=== PATIENT | female | born 2000 | race African-American/Black ===

== ENCOUNTER 2020-08-09 17:03 | Emergency (ER) | payer BC, OTHER ==
[~2020-08-09] VITALS: Ht 160 cm; Wt 54.4 kg
--- NOTE | 2020-08-09 17:22 | ED GU-Female ---
General Chief Complaint: Female Reproductive Stated Complaint: APPROX 4 WKS PREG/BLEEDING Source: patient, other (Significant other) Exam Limitations: no limitations (KRISTOFER NEVES) History of Present Illness Date Seen by Provider: Aug 09, 2020 Time Seen by Provider: 17:09 Initial Comments Patient presents ER by private conveyance from home with her significant other and chief complaint that she got done with track practice and noticed some spotting. She had intercourse this morning unprotected. She had a positive test 1 day ago. Her last menstrual period was June 24. Her last intercourse prior to that was July 14 and she took Plan B July 15. She is a G0 at 6 weeks and 4 days. She does not take any control. She does not desire to be . She denies dysuria, discharge or dyspareunia. No bleeding or spotting after intercourse. No problems with bowels nausea vomiting fevers chills or discharge. (KRISTOFER NEVES) Allergies and Home Medications Allergies Coded Allergies: No Known Drug Allergies (Unverified , 08/09/20) Patient Home Medication List Home Medication List Reviewed: Yes (KRISTOFER NEVES) Review of Systems Review of Systems Constitutional: No chills, No diaphoresis EENTM: No ear discharge, No ear pain Respiratory: No cough, No dyspnea on exertion Cardiovascular: No chest pain, No palpitations Gastrointestinal: No abdominal pain, No nausea, No vomiting Genitourinary: denies discharge, denies dysuria : Yes LMP: Jun 24, 2020 Musculoskeletal: No back pain, No joint pain (KRISTOFER NEVES) All Other Systemes Reviewed Negative Unless Noted: Yes (KRISTOFER NEVES) Past Vsxexje-Vimmwy-Wqxibw Hx Patient Social History Alcohol Use: Denies Use Smoking Status: Never a Smoker (KRISTOFER NEVES) Physical Exam Vital Signs Vital Signs - First Documented 08/09/20 08/09/20 17:16 20:55 Temp 36.7 Pulse 116 Resp 18 B/P (MAP) 128/69 (88) Pulse Ox 99 O2 Delivery Room Air (CHELO MILLS MD) Vital Signs Capillary Refill : (KRISTOFER NEVES) Height, Weight, BMI Height: '" Weight: lbs. oz. kg; BMI Method: General Appearance: WD/WN, no apparent distress HEENT: PERRL/EOMI, pharynx normal Neck: full range of motion, normal inspection Cardiovascular: normal peripheral pulses, regular rate, rhythm Respiratory: lungs clear, normal breath sounds, no respiratory distress, no accessory muscle use Gastrointestinal: normal bowel sounds, non tender, soft Neurologic/Psychiatric: alert, normal mood/affect, oriented x 3 (KRISTOFER NEVES) Progress/Results/Core Measures Suspected Sepsis SIRS Temperature: Pulse: Respiratory Rate: Laboratory Tests 08/09/20 17:20: White Blood Count 12.6H Blood Pressure / Mean: Laboratory Tests 08/09/20 17:20: Creatinine 0.97, Platelet Count 245 (KRISTOFER NEVES) Results/Orders Lab Results Laboratory Tests Test 08/09/20 17:20 08/09/20 19:50 Range/Units White Blood Count 12.6 H 4.3-11.0 10^3/uL Red Blood Count 4.58 3.80-5.11 10^6/uL Hemoglobin 13.9 11.5-16.0 g/dL Hematocrit 42 35-52 % Mean Corpuscular Volume 91 80-99 fL Mean Corpuscular Hemoglobin 30 25-34 pg Mean Corpuscular Hemoglobin Concent 34 32-36 g/dL Red Cell Distribution Width 12.5 10.0-14.5 % Platelet Count 245 130-400 10^3/uL Mean Platelet Volume 11.5 9.0-12.2 fL Immature Granulocyte % (Auto) 0 % Neutrophils (%) (Auto) 84 H 42-75 % Lymphocytes (%) (Auto) 9 L 12-44 % Monocytes (%) (Auto) 6 0-12 % Eosinophils (%) (Auto) 0 0-10 % Basophils (%) (Auto) 0 0-10 % Neutrophils # (Auto) 10.6 H 1.8-7.8 10^3/uL Lymphocytes # (Auto) 1.1 1.0-4.0 10^3/uL Monocytes # (Auto) 0.8 0.0-1.0 10^3/uL Eosinophils # (Auto) 0.1 0.0-0.3 10^3/uL Basophils # (Auto) 0.0 0.0-0.1 10^3/uL Immature Granulocyte # (Auto) 0.1 0.0-0.1 10^3/uL Urine Color YELLOW Urine Clarity CLEAR Urine pH 5.0 5-9 Urine Specific [place] >=1.030 1.016-1.022 Urine Protein TRACE H NEGATIVE Urine Glucose (UA) NEGATIVE NEGATIVE Urine Ketones TRACE H NEGATIVE Urine Nitrite NEGATIVE NEGATIVE Urine Bilirubin NEGATIVE NEGATIVE Urine Urobilinogen 0.2 < = 1.0 MG/DL Urine Leukocyte Esterase NEGATIVE NEGATIVE Urine RBC (Auto) 2+ H NEGATIVE Urine RBC 5-10 H /HPF Urine WBC 0-2 /HPF Urine Crystals PRESENT H /LPF Urine Amorphous Sediment RARE JANAE URATES H /LPF Urine Bacteria TRACE /HPF Urine Casts NONE /LPF Urine Mucus SMALL H /LPF Urine Culture Indicated NO Sodium Level 137 135-145 MMOL/L Potassium Level 4.7 3.6-5.0 MMOL/L Chloride Level 106 98-107 MMOL/L Carbon Dioxide Level 18 L 21-32 MMOL/L Anion Gap 13 5-14 MMOL/L Blood Urea Nitrogen 12 7-18 MG/DL Creatinine 0.97 0.60-1.30 MG/DL Estimat Glomerular Filtration Rate > 60 BUN/Creatinine Ratio 12 Glucose Level 81 70-105 MG/DL Calcium Level 8.9 8.5-10.1 MG/DL Human Chorionic Gonadotropin, Quant 52729 H <5 MIU/ML Serum Test, Qualitative POSITIVE NEGATIVE (CHELO MILLS MD) My Orders Orders - CHELO MILLS MD Ob<14 Wks Sngle W/Transvag (08/09/20 18:22) Abo Rh Type (08/09/20 19:53) Wet Prep (08/09/20 19:57) Neisseria Gonorrhea Swab (08/09/20 19:57) Genital Culture (08/09/20 19:57) Chlamydia Trachomatis Swab (08/09/20 19:57) Ceftriaxone For Im Use (Rocephin For Im (08/09/20 20:30) Lidocaine 1% Inj 20 Ml (Xylocaine 1% Inj (08/09/20 20:30) Azithromycin Tablet (Zithromax Tablet) (08/09/20 20:30) (CHELO MILLS MD) Medications Given in ED Current Medications Medications Dose Ordered Sig/Michelle Route Start Time Stop Time Status Last Admin Dose Admin Azithromycin 1,000 mg ONCE ONCE PO 3/19/21 20:30 08/09/20 20:31 DC 08/09/20 20:48 1,000 MG Ceftriaxone Sodium 250 mg ONCE ONCE IM 08/09/20 20:30 08/09/20 20:31 DC 08/09/20 20:48 250 MG Lidocaine HCl 0.9 ml ONCE ONCE INJ 08/09/20 20:30 08/09/20 20:31 DC 08/09/20 20:48 0.9 ML (CHELO MILLS MD) Vital Signs/I&O 08/09/20 20:55 Temp 36.7 Pulse 89 Resp 18 B/P (MAP) 125/66 (88) Pulse Ox 99 O2 Delivery Room Air (CHELO MILLS MD) Vital Signs/I&O Capillary Refill : (KRISTOFER NEVES) Progress Note #1: Time: 17:23 Progress Note Plan to get a urinalysis and bedside . If this is positive we will do a pelvic exam and get a beta hCG. If the beta hCG is greater than 2500 we will get a transvaginal ultrasound as she has not had any care or ultrasound to date. Would like to rule out ectopic . She denies any significant discomfort at this time. Progress Note #2: Time: 18:05 Progress Note hCG pending. She may need a ultrasound to confirm placement of her . Discussed the case with Dr. Edmond and he accepts the care of the patient at shift change. (KRISTOFER NEVES) Progress Note : Progress Note I assumed care of this patient at shift change. hCG returned with significant elevation. Ultrasound was obtained and showed an intrauterine gestational sac but no heartbeat evident. I discussed options with the patient including further evaluation with pelvic exam. She elected to proceed with pelvic exam which was performed by Jacqui Sheehan NP. There was bloody mucousy discharge from the cervical os without any other pathology identified. There was no cervical inflammation or cervical motion tenderness. The microscopic evaluation demonstrated a significant number of white cells. For this reason patient was treated with Rocephin and azithromycin. Options regarding plans for her moving forward were discussed and patient was given multiple resources to reference. She was discharged home in stable condition. The importance of follow-up to determine the nature of her was stressed. (CHELO MILLS MD) Departure Impression Primary Impression: Threatened miscarriage Disposition: HOME, SELF-CARE Condition: Improved Departure-Patient Inst. Decision time for Depature: 20:42 (CHELO MILLS MD) Referrals: NACHO DOLAN,RADHA ABARCA,DONNA BARRETT,RAJENDRA STAHL,TETE SOLIS,DALE He MD NO,LOCAL PHYSICIAN (PCP) Primary Care Physician JUN TAM DO Patient Instructions: Threatened Miscarriage (DC) Add. Discharge Instructions: You may take Tylenol (acetaminophen) up to 650 mg every 6 hours as needed. Drink plenty of clear liquids to stay well-hydrated. Follow-up with a women's health provider as soon as possible. Several physicians are listed below for your convenience. Observe pelvic rest (nothing in the vagina or intercourse) until you are cleared by a physician and your cultures have been reviewed. Call with any questions or concerns. Return to the emergency room if you have significant worsening of conditions or additional symptoms such as fever, nausea excessive bleeding, shortness of breath, lightheadedness, vomiting, etc. All discharge instructions reviewed with patient and/or family. Voiced understanding. KRISTOFER NEVES Aug 09, 2020 17:22 CHELO MILLS MD Aug 09, 2020 20:45
[2020-08-09 17:31] LABS: BASOPHILS % (AUTO) 0 % (0-10); BILIRUBIN,URINE NEGATIVE (NEGATIVE); CLARITY,URINE CLEAR; COLOR,URINE YELLOW; EOSINOPHILS # (AUTO) 0.1 10^3/uL (0.0-0.3); EOSINOPHILS % (AUTO) 0 % (0-10); GLUCOSE, URINE (UA) NEGATIVE (NEGATIVE); HEMATOCRIT 42 % (35-52); HEMOGLOBIN 13.9 g/dL (11.5-16.0); KETONES,URINE TRACE (NEGATIVE); LEUKOCYTE ESTERASE ,URINE NEGATIVE (NEGATIVE); LYMPHOCYTES # (AUTO) 1.1 10^3/uL (1.0-4.0); LYMPHOCYTES % (AUTO) 9 % (12-44); MEAN CORPUSCULAR HEMOGLOBIN 30 pg (25-34); MEAN CORPUSCULAR HGB CONC 34 g/dL (32-36); MEAN CORPUSCULAR VOLUME 91 fL (80-99); MEAN PLATELET VOLUME 11.5 fL (9.0-12.2); MONOCYTES # (AUTO) 0.8 10^3/uL (0.0-1.0); MONOCYTES % (AUTO) 6 % (0-12); NEUTROPHILS # (AUTO) 10.6 10^3/uL (1.8-7.8); NEUTROPHILS % (AUTO) 84 % (42-75); NITRITE,URINE NEGATIVE (NEGATIVE); PLATELET COUNT 245 10^3/uL (130-400); PROTEIN,URINE TRACE (NEGATIVE); WHITE BLOOD COUNT 12.6 10^3/uL (4.3-11.0)
[2020-08-09 17:47] LABS: AMORPHOUS SEDIMENT,UR RARE AMOR URATES /LPF; BACTERIA,URINE TRACE /HPF; WBC,URINE 0-2 /HPF
[2020-08-09 17:51] LABS: BUN/CREATININE RATIO 12; CALCIUM 8.9 MG/DL (8.5-10.1); CARBON DIOXIDE 18 MMOL/L (21-32); CHLORIDE 106 MMOL/L (98-107); CREATININE SERUM 0.97 MG/DL (0.60-1.30); GFR ESTIMATED > 60; GLUCOSE 81 MG/DL (70-105); POTASSIUM 4.7 MMOL/L (3.6-5.0); SODIUM 137 MMOL/L (135-145)
--- NOTE | 2020-08-09 19:27 | Diagnostic Imaging Report ---
INDICATION: Confirm viability. EXAMINATION: OB ultrasound. COMPARISON: There is no prior study available for comparison. FINDINGS: There is a gestational sac within the uterus but there is no clear evidence for an embryonic pole. The sac measurements would correspond to a 6 week 1 day +/- 1 week. This could represent an early live . The possibility that this is secondary to a blighted ovum should also be considered. Correlation with the patient's beta hCG levels would be recommended. There is no pelvic mass or free fluid collection to suggest an ectopic . Both ureters were identified and were unremarkable. IMPRESSION: 1. There is a gestational sac within the uterus but there is no clear evidence for embryonic pole. Whether this is related to an early live or a blighted ovum is not certain. Recommendations as above. 2. There is no acute pelvic abnormality noted otherwise. Dictated by: Dictated on workstation # [id number]
[2020-08-09] MEDS ORDERED: AZITHROMYCIN 250 MG TAB (ZITHROMAX) PO ONE (20:30)
[2020-08-09] MEDS ORDERED: LIDOCAINE 1% INJ 20 ML 20 ML VIAL INJ ONE (20:30)
[2020-08-09] MEDS ORDERED: cefTRIAXone 250 MG/ML vial (IM ONLY) IM ONE (20:30)
[2020-08-09 20:55] VITALS: BP 125/66
== END 2020-08-09 21:01 | disposition home or self-care (01) ==
LOC: ER 17:06
DX: O20.0 Threatened abortion (principal); Z3A.01 Less than 8 weeks gestation of pregnancy
CPT/HCPCS: 36415; 76801; 76817; 80048; 81000; 84702; 84703; 85025; 86900; 86901; 87070; 87077; 87205; 87210; 87491; 87591

== ENCOUNTER 2020-09-14 20:13 | Emergency (ER) | payer BC ==
[~2020-09-14] VITALS: Ht 160 cm; Wt 55.8 kg
[2020-09-14 20:39] LABS: BASOPHILS % (AUTO) 0 % (0-10); EOSINOPHILS % (AUTO) 0 % (0-10); HEMATOCRIT 41 % (35-52); HEMOGLOBIN 13.4 g/dL (11.5-16.0); LYMPHOCYTES # (AUTO) 1.1 10^3/uL (1.0-4.0); LYMPHOCYTES % (AUTO) 9 % (12-44); MEAN CORPUSCULAR HEMOGLOBIN 30 pg (25-34); MEAN CORPUSCULAR HGB CONC 33 g/dL (32-36); MEAN CORPUSCULAR VOLUME 90 fL (80-99); MEAN PLATELET VOLUME 10.5 fL (9.0-12.2); MONOCYTES # (AUTO) 0.7 10^3/uL (0.0-1.0); MONOCYTES % (AUTO) 6 % (0-12); NEUTROPHILS # (AUTO) 10.4 10^3/uL (1.8-7.8); NEUTROPHILS % (AUTO) 85 % (42-75); PLATELET COUNT 244 10^3/uL (130-400); WHITE BLOOD COUNT 12.3 10^3/uL (4.3-11.0)
[2020-09-14] MEDS ORDERED: KETOROLAC 30 MG/ML VIAL IVP ONE (20:45)
--- NOTE | 2020-09-14 20:50 | ED Abdominal Pain ---
General Chief Complaint: Abdominal/GI Problems Stated Complaint: LOWER ABD PAIN Nursing Triage Note: PRESENTS TO ROOM #5 VIA POV WITH C/O R LOWER QUADRANT DISCOMFORT. STATES AFTER RUNNING AT HER TRACK MEET THIS EVENING, SHE BEGAN TO EXPERIENCE PAIN. STATES, "IT FEELS LIKE ITS BULGING OUT" WHILE POINT AT HER R LOWER QUADRANT. STATES ON 08/07/20 SHE ABORTED HER ET HAS HAD NO F/U CARE SINCE. Sepsis Screen: No Definite Risk Source of Information: Patient Exam Limitations: No Limitations History of Present Illness Date Seen by Provider: Sep 14, 2020 Time Seen by Provider: 20:28 Initial Comments This is a healthy-appearing 20-year-old female who presents to the ER with complaints of sudden onset right lower quad abdominal pain. States she was at a track meet when she finished running she began to experience sudden onset of pain. Describes pain as sharp in nature. Currently rating 1 out of 10, but is 7 out of 10 at its worse. States pain is worse when she gets up and moves around. Reports having pill last month and is due anytime for her menstrual cycle. She is sexually active and uses condoms for protection. Took test yesterday and was negative. Denies fever, chills, cough, shortness of breath, nausea/vomiting/diarrhea, dysuria or hematuria. Allergies and Home Medications Allergies Coded Allergies: No Known Drug Allergies (Unverified , 08/09/20) Patient Home Medication List Home Medication List Reviewed: Yes Review of Systems Review of Systems Constitutional: no symptoms reported EENTM: No Symptoms Reported Respiratory: No Symptoms Reported Cardiovascular: No Symptoms Reported Gastrointestinal: See HPI Genitourinary: No Symptoms Reported Musculoskeletal: no symptoms reported Skin: no symptoms reported Psychiatric/Neurological: No Symptoms Reported Endocrine: No Symptoms Reported Hematologic/Lymphatic: No Symptoms Reported Past Zhwrgrj-Qlohvg-Fbhzgr Hx Patient Social History Recent Infectious Disease Expo: No Recent Hopitalizations: No Seasonal Allergies Seasonal Allergies: No Past Medical History Surgeries: No Respiratory: No Cardiac: No Neurological: No Genitourinary: No Gastrointestinal: No Musculoskeletal: No Endocrine: No Cancer: No Psychosocial: No Integumentary: No Blood Disorders: No Physical Exam Vital Signs Vital Signs - First Documented 09/14/20 20:29 Temp 36.7 Pulse 98 Resp 18 B/P (MAP) 136/85 (102) Pulse Ox 99 O2 Delivery Room Air Capillary Refill : Less Than 3 Seconds Height/Weight/BMI Height: '" Weight: lbs. oz. kg; 21.00 BMI Method: General Appearance: WD/WN, no apparent distress HEENT: PERRL/EOMI, normal ENT inspection, pharynx normal Neck: full range of motion, normal inspection Respiratory: lungs clear, normal breath sounds, no accessory muscle use Cardiovascular: normal peripheral pulses, regular rate, rhythm, no murmur Gastrointestinal: normal bowel sounds, soft; No rebound; tenderness (RLQ) Extremities: normal range of motion, non-tender, normal capillary refill Back: normal inspection, no vertebral tenderness Neurologic/Psychiatric: no motor/sensory deficits, alert, normal mood/affect, oriented x 3 Skin: normal color, warm/dry Progress/Results/Core Measures Results/Orders Lab Results Laboratory Tests Test 09/14/20 20:30 09/14/20 20:45 Range/Units White Blood Count 12.3 H 4.3-11.0 10^3/uL Red Blood Count 4.55 3.80-5.11 10^6/uL Hemoglobin 13.4 11.5-16.0 g/dL Hematocrit 41 35-52 % Mean Corpuscular Volume 90 80-99 fL Mean Corpuscular Hemoglobin 30 25-34 pg Mean Corpuscular Hemoglobin Concent 33 32-36 g/dL Red Cell Distribution Width 12.8 10.0-14.5 % Platelet Count 244 130-400 10^3/uL Mean Platelet Volume 10.5 9.0-12.2 fL Immature Granulocyte % (Auto) 0 % Neutrophils (%) (Auto) 85 H 42-75 % Lymphocytes (%) (Auto) 9 L 12-44 % Monocytes (%) (Auto) 6 0-12 % Eosinophils (%) (Auto) 0 0-10 % Basophils (%) (Auto) 0 0-10 % Neutrophils # (Auto) 10.4 H 1.8-7.8 10^3/uL Lymphocytes # (Auto) 1.1 1.0-4.0 10^3/uL Monocytes # (Auto) 0.7 0.0-1.0 10^3/uL Eosinophils # (Auto) 0.0 0.0-0.3 10^3/uL Basophils # (Auto) 0.0 0.0-0.1 10^3/uL Immature Granulocyte # (Auto) 0.1 0.0-0.1 10^3/uL Sodium Level 138 135-145 MMOL/L Potassium Level 4.5 3.6-5.0 MMOL/L Chloride Level 103 98-107 MMOL/L Carbon Dioxide Level 25 21-32 MMOL/L Anion Gap 10 5-14 MMOL/L Blood Urea Nitrogen 11 7-18 MG/DL Creatinine 1.01 0.60-1.30 MG/DL Estimat Glomerular Filtration Rate > 60 BUN/Creatinine Ratio 11 Glucose Level 94 70-105 MG/DL Calcium Level 9.3 8.5-10.1 MG/DL Corrected Calcium 9.0 8.5-10.1 MG/DL Total Bilirubin 0.5 0.1-1.0 MG/DL Aspartate Amino Transf (AST/SGOT) 31 5-34 U/L Alanine Aminotransferase (ALT/SGPT) 35 0-55 U/L Alkaline Phosphatase 71 40-136 U/L Total Protein 7.7 6.4-8.2 GM/DL Albumin 4.4 3.2-4.5 GM/DL Urine Color YELLOW Urine Clarity CLEAR Urine pH 6.0 5-9 Urine Specific [place] >=1.030 1.016-1.022 Urine Protein NEGATIVE NEGATIVE Urine Glucose (UA) NEGATIVE NEGATIVE Urine Ketones NEGATIVE NEGATIVE Urine Nitrite NEGATIVE NEGATIVE Urine Bilirubin NEGATIVE NEGATIVE Urine Urobilinogen 0.2 < = 1.0 MG/DL Urine Leukocyte Esterase NEGATIVE NEGATIVE Urine RBC (Auto) NEGATIVE NEGATIVE Urine RBC NONE /HPF Urine WBC NONE /HPF Urine Squamous Epithelial Cells 2-5 /HPF Urine Crystals NONE /LPF Urine Bacteria NEGATIVE /HPF Urine Casts NONE /LPF Urine Mucus NEGATIVE /LPF Urine Culture Indicated NO My Orders Orders - MASHA OLIVEIRA PULVI MIXER OPERATOR Ua Culture If Indicated (09/14/20 20:27) Urine Bedside (09/14/20 20:27) Cbc With Automated Diff (09/14/20 20:34) Comprehensive Metabolic Panel (09/14/20 20:34) Ct Abd/Pelv W (Appendicitis) (09/14/20 20:34) Ed Iv/Invasive Line Start (09/14/20 20:34) Ketorolac Injection (Toradol Injection) (09/14/20 20:45) Medications Given in ED Current Medications Medications Dose Ordered Sig/Michelle Route Start Time Stop Time Status Last Admin Dose Admin Iohexol 100 ml ONCE ONCE IV 09/14/20 21:30 09/14/20 21:31 DC 09/14/20 21:25 70 ML Ketorolac Tromethamine 15 mg ONCE ONCE IVP 09/14/20 20:45 09/14/20 20:46 DC 09/14/20 20:45 15 MG Sodium Chloride 10 ml NEEDED PRN IV 09/14/20 21:30 09/14/20 22:20 DC 09/14/20 21:25 10 ML Sodium Chloride 100 ml ONCE ONCE IV 09/14/20 21:30 09/14/20 21:31 DC 09/14/20 21:25 80 ML Vital Signs/I&O 09/14/20 20:29 Temp 36.7 Pulse 98 Resp 18 B/P (MAP) 136/85 (102) Pulse Ox 99 O2 Delivery Room Air Blood Pressure Mean: 102 Progress Progress Note : Progress Note Pt. examined an in no acute distress. At rest her pain is 1/10 and ovarian torsion is unlikely. States she still has her appendix. Will initiate appendicitis workup. Bedside negative. Labs reviewed, slight elevation in WBC-12.3 noted. H&H stable. CMP is unremarkable as well as UA. Orders given for Toradol 15mg IVP. CT abd pelvis shows no acute findings. Reports feeling much improved after Toradol. Discussed following up with her PCP if symptoms persist and she can always return to ER for any concerning or worsening symptoms. Verbalized understanding. Reviewed discharge POC and she is agreeable with plan. Diagnostic Imaging Diagonstic Imaging: CT Plain Films/CT/US/NM/MRI: abdomen, pelvis Comments NAME: MELODY FERMIN [facility] REC#: [id number] PT STATUS: REG ER : 2000 PHYSICIAN: MASHA OLIVEIRA PULVI MIXER OPERATOR ADMIT DATE: 09/14/20/ER Draft Date of Exam:09/14/20 CT ABD/PELV W (APPENDICITIS) PROCEDURE: CT abdomen and pelvis with contrast, rule out appendicitis. TECHNIQUE: Multiple contiguous axial images were obtained through the abdomen and pelvis after the administration of intravenous contrast. All CT scans use one or more of the following dose optimizing techniques: automated exposure control, MA and/or KvP adjustment based on patient size and exam type or iterative reconstruction. INDICATION: Lower quadrant pain. Sensation of bulging in the right lower quadrant. FINDINGS: There is prominence of the retroperitoneal and abdominal wall cord musculature with a paucity of mesenteric and retroperitoneal fat. This results in diminished sensitivity for detecting inflammatory processes. No inflammatory changes could be identified. I am unable to clearly visualize the patient's appendix but no regional tissue thickening, ascites, fluid collection or inflammatory changes are found. The uterus, adnexa and urinary bladder appear nonacute. There is no bowel obstruction. There is no abdominal wall fluid collection, hernia or mass effect. The liver, spleen, adrenals, pancreas, gallbladder, kidneys all appear normal. No obstructive phenomena. No pneumatosis. There is no free air. There is no fracture. No bony avulsion. The lung bases are nonacute. IMPRESSION: A paucity of fat is largely responsible for the inability to visualize the appendix. No acute or inflammatory changes are identified no ascites fluid collection or free air no acute abdominal wall pathology or hernia. No mass or fluid collection. No obstructive features. Dictated on workstation # [id number] Dict: 09/14/202127 Trans: 09/14/202206 [facility] [id number] Interpreted by: PLACIDO BUSTILLOS Electronically signed by: Reviewed: Reviewed by Me Departure Impression Primary Impression: Abdominal pain Disposition: HOME, SELF-CARE Condition: Improved Departure-Patient Inst. Decision time for Depature: 22:14 Referrals: NO,LOCAL PHYSICIAN (PCP/Family) Primary Care Physician Patient Instructions: Acute Pain, Adult Add. Discharge Instructions: Plan: 1. Discharge home. 2. Take Ibuprofen 600mg every 6 hours as needed for pain. 3. May use heating pad 20 minutes at a time. 4. Return for any new or worsening symptoms. All discharge instructions reviewed with patient and/or family. Voiced un derstanding. MASHA OLIVEIRA PULVI MIXER OPERATOR Sep 14, 2020 20:50
[2020-09-14 21:00] LABS: ALANINE AMINOTRANSFERASE 35 U/L (0-55); ALBUMIN 4.4 GM/DL (3.2-4.5); ALKALINE PHOSPHATASE 71 U/L (40-136); BILIRUBIN,TOTAL 0.5 MG/DL (0.1-1.0); BUN/CREATININE RATIO 11; CALCIUM 9.3 MG/DL (8.5-10.1); CARBON DIOXIDE 25 MMOL/L (21-32); CHLORIDE 103 MMOL/L (98-107); CREATININE SERUM 1.01 MG/DL (0.60-1.30); GFR ESTIMATED > 60; GLUCOSE 94 MG/DL (70-105); POTASSIUM 4.5 MMOL/L (3.6-5.0); SODIUM 138 MMOL/L (135-145); TOTAL PROTEIN 7.7 GM/DL (6.4-8.2)
[2020-09-14 21:03] LABS: BILIRUBIN,URINE NEGATIVE (NEGATIVE); CLARITY,URINE CLEAR; COLOR,URINE YELLOW; GLUCOSE, URINE (UA) NEGATIVE (NEGATIVE); KETONES,URINE NEGATIVE (NEGATIVE); LEUKOCYTE ESTERASE ,URINE NEGATIVE (NEGATIVE); NITRITE,URINE NEGATIVE (NEGATIVE); PROTEIN,URINE NEGATIVE (NEGATIVE)
[2020-09-14 21:12] LABS: BACTERIA,URINE NEGATIVE /HPF
[2020-09-14] MEDS ORDERED: CATHETER FLUSH 10 ML SYR IV PRN (21:30)
[2020-09-14] MEDS ORDERED: IOHEXOL 350 MG/ML 100 ML (OMNIPAQUE 350) VIAL IV ONE (21:30)
[2020-09-14] MEDS ORDERED: NS 100 ML (IVPB) BAG IV ONE (21:30)
[2020-09-14] MEDS ORDERED: HOLD METFORMIN - RECEIVED CONTRAST 20 ML VIAL IV SCH (21:30)
--- NOTE | 2020-09-14 22:09 | Diagnostic Imaging Report ---
PROCEDURE: CT abdomen and pelvis with contrast, rule out appendicitis. TECHNIQUE: Multiple contiguous axial images were obtained through the abdomen and pelvis after the administration of intravenous contrast. All CT scans use one or more of the following dose optimizing techniques: automated exposure control, MA and/or KvP adjustment based on patient size and exam type or iterative reconstruction. INDICATION: Lower quadrant pain. Sensation of bulging in the right lower quadrant. FINDINGS: There is prominence of the retroperitoneal and abdominal wall cord musculature with a paucity of mesenteric and retroperitoneal fat. This results in diminished sensitivity for detecting inflammatory processes. No inflammatory changes could be identified. I am unable to clearly visualize the patient's appendix but no regional tissue thickening, ascites, fluid collection or inflammatory changes are found. The uterus, adnexa and urinary bladder appear nonacute. There is no bowel obstruction. There is no abdominal wall fluid collection, hernia or mass effect. The liver, spleen, adrenals, pancreas, gallbladder, kidneys all appear normal. No obstructive phenomena. No pneumatosis. There is no free air. There is no fracture. No bony avulsion. The lung bases are nonacute. IMPRESSION: A paucity of fat is largely responsible for the inability to visualize the appendix. No acute or inflammatory changes are identified no ascites fluid collection or free air no acute abdominal wall pathology or hernia. No mass or fluid collection. No obstructive features. Dictated by: Dictated on workstation # [id number]
[2020-09-14 22:20] VITALS: BP 138/89
== END 2020-09-14 22:20 | disposition home or self-care (01) ==
LOC: EDUNIT# 20:13 → ER 20:15
DX: R10.31 Right lower quadrant pain (principal)
CPT/HCPCS: 36415; 74177; 80053; 81000; 84703; 85025; 96374

== ENCOUNTER → 2021-06-09 | Outpatient (CLI) | payer BC ==
--- NOTE | 2021-06-09 13:57 | Diagnostic Imaging Report ---
PROCEDURE: US PELVIC (NON OB) TECHNIQUE: Multiple real-time grayscale images were obtained over the pelvis in various projections transabdominally. INDICATION: Pelvic pain. FINDINGS: Uterus is anteverted measuring 6.9 x 4.0 x 4.4 cm. Endometrium is 3 mm in thickness. No myometrial mass is detected. Right ovary measures 3.3 x 1.7 x 2.0 cm and left ovary measures 3.2 x 2.0 x 2.0 cm. There is blood flow to both ovaries. No adnexal mass or free fluid is detected. IMPRESSION: Unremarkable pelvic ultrasound. Dictated by: Dictated on workstation # [id number]
== END ==
LOC: RAD 12:31
PROVIDERS: ATTEND Nurse Practitioner Family
DX: N94.89 Other specified conditions associated with female genital organs and menstrual cycle (principal); R10.2 Pelvic and perineal pain
CPT/HCPCS: 76856

== ENCOUNTER 2023-01-30 20:19 | Emergency (ER) | payer BC ==
[~2023-01-30] VITALS: Ht 160 cm; Wt 55.8 kg
[2023-01-30 20:25] VITALS: BP 133/92
[2023-01-30] MEDS ORDERED: AMOX875T2 PO (20:31)
[2023-01-30 20:59] LABS: BASOPHILS % (AUTO) 1 % (0-10); EOSINOPHILS # (AUTO) 0.1 10^3/uL (0.0-0.3); EOSINOPHILS % (AUTO) 1 % (0-10); HEMATOCRIT 42 % (35-52); HEMOGLOBIN 14.1 g/dL (11.5-16.0); LYMPHOCYTES # (AUTO) 1.7 10^3/uL (1.0-4.0); LYMPHOCYTES % (AUTO) 36 % (12-44); MEAN CORPUSCULAR HEMOGLOBIN 30 pg (25-34); MEAN CORPUSCULAR HGB CONC 33 g/dL (32-36); MEAN CORPUSCULAR VOLUME 90 fL (80-99); MEAN PLATELET VOLUME 11.4 fL (9.0-12.2); MONOCYTES # (AUTO) 0.7 10^3/uL (0.0-1.0); MONOCYTES % (AUTO) 15 % (0-12); NEUTROPHILS # (AUTO) 2.1 10^3/uL (1.8-7.8); NEUTROPHILS % (AUTO) 46 % (42-75); PLATELET COUNT 192 10^3/uL (130-400); WHITE BLOOD COUNT 4.6 10^3/uL (4.3-11.0)
[2023-01-30] MEDS ORDERED: DOXY100T2 PO (21:06)
[2023-01-30] MEDS ORDERED: ACYC30OI TP (21:06)
[2023-01-30] MEDS ORDERED: VALA10004 PO (21:06)
[2023-01-30] MEDS ORDERED: METR-145 PO (21:06)
--- NOTE | 2023-01-30 21:06 | ED GU-Female ---
General Chief Complaint: Skin/Wound Problems Stated Complaint: SWELLING PAIN IN GROIN AREA Nursing Triage Note: C/O VAGINAL RASH, SWOLLEN LYMPH NODES. SEEN AT [facility] [place] 01/29/23 FOR SAME STARTED ON AMOXICILLIN. Source: patient History of Present Illness Date Seen by Provider: Jan 30, 2023 Allergies and Home Medications Allergies Coded Allergies: No Known Drug Allergies (Unverified , 08/09/20) Patient Home Medication List Amoxicillin (Amoxicillin) 875 Mg Tablet, Unknown Dose PO, (Reported) Entered as Reported by: BLAINE LEGER on 01/30/232030 Last Action: New Order Past [id number] Hx Patient Social History Tobacco Use?: No Substance use?: No Alcohol Use?: No Pt feels they are or have been: No Immunizations Up To Date First/Initial COVID19 Vaccinat: NONE Seasonal Allergies Seasonal Allergies: No Past Medical History Surgery/Hospitalization HX: DENIES Surgeries: No Respiratory: No Cardiac: No Neurological: No Last Menstrual Period: Jan 10, 2023 Genitourinary: No Gastrointestinal: No Musculoskeletal: No Endocrine: No Cancer: No Psychosocial: No Integumentary: No Blood Disorders: No Physical Exam Vital Signs Vital Signs - First Documented 01/30/23 20:25 Temp 37.1 Pulse 77 Resp 16 B/P (MAP) 133/92 (106) Pulse Ox 98 O2 Delivery Room Air Capillary Refill : Less Than 3 Seconds Height, Weight, BMI Height: '" Weight: lbs. oz. kg; 21.00 BMI Method: Progress/Results/Core Measures Suspected Sepsis SIRS Temperature: Pulse: 77 Respiratory Rate: 16 Laboratory Tests 01/30/23 20:44: Blood Pressure 133 /92 Mean: 106 Laboratory Tests 01/30/23 20:44: Results/Orders Lab Results Laboratory Tests Test 01/30/23 20:40 01/30/23 20:44 Range/Units My Orders Orders - YARED GONZALEZ DO Ed Iv/Invasive Line Start (01/30/23 20:37) Urine Bedside (01/30/23 20:37) Cbc With Automated Diff (01/30/23 20:37) Comprehensive Metabolic Panel (01/30/23 20:37) Hepatitis Panel Acute (01/30/23 20:37) Hiv 1&2 Antibody (01/30/23 20:37) Ua Culture If Indicated (01/30/23 20:37) Genital Culture (01/30/23 20:37) Wet Prep (01/30/23 20:37) Thai Prep (01/30/23 20:37) Herpes Simplex Culture (01/30/23 20:37) Herpes Simplex Virus 1&2 G&M (01/30/23 20:37) Syphilis Health Check W/Reflex (01/30/23 20:37) Syphilis Antibody Screen (01/30/23 20:37) Chlamydia Trachomatis Swab (01/30/23 20:55) Neisseria Gonorrhea Swab (01/30/23 20:55) Rocephin 1gm/50 Ml Iv (1xdose) (01/30/23 21:15) Azithromycin Tablet (Azithromycin Tabl (01/30/23 21:15) Valacyclovir Tablet (Valacyclovir Tablet (01/30/23 21:15) Vital Signs/I&O 01/30/23 20:25 Temp 37.1 Pulse 77 Resp 16 B/P (MAP) 133/92 (106) Pulse Ox 98 O2 Delivery Room Air Capillary Refill : Less Than 3 Seconds Blood Pressure Mean: 106 Departure Impression Primary Impression: Genital ulcer, female Additional Impression: Vaginitis Disposition: HOME, SELF-CARE Condition: Stable Departure-Patient Inst. Decision time for Depature: 21:04 Referrals: LOREN CENTENO MD Patient Instructions: Genital Herpes (DC), Sexually Transmitted Diseases ED, Vaginitis Add. Discharge Instructions: NO INTERCOURSE OF ANY KIND UNTIL YOU ARE RECHECKED AND CLEARED BY TYLENOL AND MOTRIN NEEDED FOR PAIN STOP AMOXICILLIN FOLLOW UP WITH [facility] IN 3-4 DAYS FOR FURTHER CARE All discharge instructions reviewed with patient and/or family. Voiced understa nding. Scripts Metronidazole (Metronidazole) 500 Mg Tablet 500 MG PO QID, #40 TAB Prov: MAXIMO GONZALEZA K DO 01/30/23 Doxycycline Hyclate (Doxycycline Hyclate) 100 Mg Tablet 100 MG PO BID, #20 TAB 0 Refills Prov: CARLOSYARED K DO 01/30/23 Acyclovir (Zovirax) 5 % Oint 30 GM TP Q3-4 HOURS, #1 TUBE Prov: CARLOSYARED K DO 01/30/23 Valacyclovir HCl (Valtrex) 1,000 Mg Tablet 1000 MG PO TID, #30 TAB Prov: CARLOS,YARED K DO 01/30/23 YARED GONZALEZ DO Jan 30, 2023 21:06
[2023-01-30 21:07] LABS: ALBUMIN 4.4 GM/DL (3.2-4.5)
[2023-01-30 21:08] LABS: POTASSIUM 3.6 MMOL/L (3.6-5.0)
[2023-01-30 21:10] LABS: TOTAL PROTEIN 7.8 GM/DL (6.4-8.2)
[2023-01-30 21:14] LABS: CREATININE SERUM 0.96 MG/DL (0.60-1.30)
[2023-01-30] MEDS ORDERED: cefTRIAXone IV/IM 1,000 MG in NS (IVPB) 50 ML 50 ML IV ONE (21:15)
[2023-01-30] MEDS ORDERED: AZITHROMYCIN 250 MG TABLET PO ONE (21:15)
[2023-01-30] MEDS ORDERED: VALACYCLOVIR 500 MG TABLET PO SCH (21:15)
[2023-01-30 21:37] LABS: CLARITY,URINE CLEAR; COLOR,URINE YELLOW; PH,URINE 6.5 (5-9); PROTEIN,URINE 1+ (NEGATIVE)
[2023-01-30 21:38] LABS: AMORPHOUS SEDIMENT,UR MOD AMOR URATES /LPF; BACTERIA,URINE FEW /HPF; BILIRUBIN,URINE NEGATIVE (NEGATIVE); GLUCOSE, URINE (UA) NEGATIVE (NEGATIVE); KETONES,URINE NEGATIVE (NEGATIVE); LEUKOCYTE ESTERASE ,URINE 3+ (NEGATIVE); NITRITE,URINE NEGATIVE (NEGATIVE); RBC,URINE 0-2 /HPF; SQUAMOUS EPITHELIAL CELL,UR >50 /HPF; URINE OTHER CLUE CELLS PRESENT /HPF; WBC,URINE 25-50 /HPF
[2023-01-30 21:54] LABS: BILIRUBIN,TOTAL 0.7 MG/DL (0.1-1.0)
[2023-02-01 15:00] LABS: HEPATITIS C ANTIBODY C Non-Reactive (Non-Reactive)
== END 2023-01-30 21:17 | disposition home or self-care (01) ==
LOC: EDUNIT# 20:19 → ER 20:22
DX: N76.5 Ulceration of vagina (principal); N76.0 Acute vaginitis; Z28.310 Unvaccinated for COVID-19
CPT/HCPCS: 36415; 80053; 80074; 81000; 84703; 85025; 86695; 86696; 86780; 87070; 87077; 87088; 87205; 87210; 87220; 87254; 87389; 87491; 87591